=== PATIENT | male | born 1995 | race Caucasian/White ===

== ENCOUNTER 2021-04-23 14:04 | Emergency (ER) | payer BC ==
--- NOTE | 2021-04-23 16:58 | EDM.PDOC ---
ED HPI GENERAL MEDICAL PROBLEM - General Chief Complaint: General Stated Complaint: MEDICAL CLEARENCE Time Seen by Provider: 04/23/21 16:40 Source of Information: Reports: Patient History Limitations: Reports: No Limitations - History of Present Illness INITIAL COMMENTS - FREE TEXT/NARRATIVE: Patient is a 25-year-old male brought in by police after, with a plan to kill his father. Patient is maintaining more harm at home 16 seconds has decreased currently and try to stab her she may do ice after finished. Patient denies any current suicide ideation and not hearing voices and did not take any drug or alcohol denies any medical complaints. - Related Data Allergies Allergy/AdvReac Type Severity Reaction Status Date / Time berries Allergy Hives Uncoded 04/23/21 15:09 Home Meds: Home Meds . [No Known Home Meds] 04/23/21 [History] Social & Family History - Tobacco Use Second Hand Smoke Exposure: No - Caffeine Use Caffeine Use: Reports: None - Recreational Drug Use Recreational Drug Use: Yes Drug Use in Last 12 Months: Yes Recreational Drug Type: Reports: Marijuana/Hashish, Methamphetamine ED ROS GENERAL - Review of Systems Review Of Systems: See Below Constitutional: Reports: No Symptoms HEENT: Reports: No Symptoms Respiratory: Reports: No Symptoms Cardiovascular: Reports: No Symptoms Endocrine: Reports: No Symptoms GI/Abdominal: Reports: No Symptoms : Reports: No Symptoms Musculoskeletal: Reports: No Symptoms Skin: Reports: No Symptoms Neurological: Reports: No Symptoms Psychiatric: Reports: Homicidal Ideation Hematologic/Lymphatic: Reports: No Symptoms Immunologic: Reports: No Symptoms ED EXAM, GENERAL - Physical Exam Exam: See Below General Appearance: Alert, WD/WN, No Apparent Distress Eye Exam: Bilateral Eye: EOMI, PERRL Ears: Normal External Exam, Normal TMs Head: Atraumatic, Normocephalic Neck: Normal Inspection, Supple, Non-Tender Respiratory/Chest: No Respiratory Distress, Lungs Clear, Normal Breath Sounds Cardiovascular: Normal Peripheral Pulses, Regular Rate, Rhythm GI/Abdominal: Normal Bowel Sounds, Soft, Non-Tender Back Exam: Normal Inspection Extremities: Normal Inspection Neurological: Alert, Oriented, Normal Cognition, Normal Gait Course - Vital Signs Last Recorded V/S: Last Vital Signs Temp 97.5 F 04/23/21 14:41 Pulse 90 04/23/21 14:41 Resp 20 04/23/21 14:41 BP 120/63 04/23/21 14:41 Pulse Ox 97 04/23/21 14:41 - Orders/Labs/Meds Orders: Active Orders 24 hr Category Date Time Status OLANZapine [ZyPREXA] Med 04/23/21 18:14 Once 5 mg IM ONETIME ONE Labs: Laboratory Tests 04/23/21 04/23/21 04/23/21 Range/Units 16:59 17:02 17:02 WBC 8.33 (4.0-11.0) K/uL RBC 4.69 (4.50-5.90) M/uL Hgb 14.1 (13.0-17.0) g/dL Hct 40.9 (38.0-50.0) % MCV 87.2 (80.0-98.0) fL MCH 30.1 (27.0-32.0) pg MCHC 34.5 (31.0-37.0) g/dL RDW Std Deviation 41.6 (28.0-62.0) fl RDW Coeff of Damien 13 (11.0-15.0) % Plt Count 268 (150-400) K/uL MPV 9.80 (7.40-12.00) fL Neut % (Auto) 62.6 (48.0-80.0) % Lymph % (Auto) 29.7 (16.0-40.0) % Harvey % (Auto) 5.3 (0.0-15.0) % Eos % (Auto) 2.0 (0.0-7.0) % Baso % (Auto) 0.4 (0.0-1.5) % Neut # (Auto) 5.2 (1.4-5.7) K/uL Lymph # (Auto) 2.5 H (0.6-2.4) K/uL Harvey # (Auto) 0.4 (0.0-0.8) K/uL Eos # (Auto) 0.2 (0.0-0.7) K/uL Baso # (Auto) 0.0 (0.0-0.1) K/uL Nucleated RBC % 0.0 /100WBC Nucleated RBCs # 0 K/uL Sodium 143 (136-148) mmol/L Potassium 3.8 (3.5-5.1) mmol/L Chloride 106 (98-107) mmol/L Carbon Dioxide 28.8 (21.0-32.0) mmol/L BUN 12 (7.0-18.0) mg/dL Creatinine 1.0 (0.8-1.3) mg/dL Est Cr Clr Drug Dosing 113.90 mL/min Estimated GFR (MDRD) > 60.0 ml/min Glucose 89 (74-106) mg/dL Calcium 8.8 (8.5-10.1) mg/dL Total Bilirubin 0.4 (0.2-1.0) mg/dL AST 13 L (15-37) IU/L ALT 20 (14-63) IU/L Alkaline Phosphatase 79 (46-116) U/L Total Protein 7.2 (6.4-8.2) g/dL Albumin 4.0 (3.4-5.0) g/dL Globulin 3.2 (2.6-4.0) g/dL Albumin/Globulin Ratio 1.3 (0.9-1.6) Salicylates 4.5 (0-20) mg/dL Urine Opiates Screen (NEGATIVE) Ur Oxycodone Screen (NEGATIVE) Urine Methadone Screen (NEGATIVE) Acetaminophen <2.0 ug/mL Ur Barbiturates Screen (NEGATIVE) Ur Phencyclidine Scrn (NEGATIVE) Ur Amphetamine Screen (NEGATIVE) U Methamphetamines Scrn (NEGATIVE) U Benzodiazepines Scrn (NEGATIVE) U Cocaine Metab Screen (NEGATIVE) U Marijuana (THC) Screen (NEGATIVE) Ethyl Alcohol < 3.0 mg/dL SARS-CoV-2 RNA (AGGIE) NEGATIVE (NEGATIVE) 04/23/21 Range/Units 17:20 WBC (4.0-11.0) K/uL RBC (4.50-5.90) M/uL Hgb (13.0-17.0) g/dL Hct (38.0-50.0) % MCV (80.0-98.0) fL MCH (27.0-32.0) pg MCHC (31.0-37.0) g/dL RDW Std Deviation (28.0-62.0) fl RDW Coeff of Damien (11.0-15.0) % Plt Count (150-400) K/uL MPV (7.40-12.00) fL Neut % (Auto) (48.0-80.0) % Lymph % (Auto) (16.0-40.0) % Harvey % (Auto) (0.0-15.0) % Eos % (Auto) (0.0-7.0) % Baso % (Auto) (0.0-1.5) % Neut # (Auto) (1.4-5.7) K/uL Lymph # (Auto) (0.6-2.4) K/uL Harvey # (Auto) (0.0-0.8) K/uL Eos # (Auto) (0.0-0.7) K/uL Baso # (Auto) (0.0-0.1) K/uL Nucleated RBC % /100WBC Nucleated RBCs # K/uL Sodium (136-148) mmol/L Potassium (3.5-5.1) mmol/L Chloride (98-107) mmol/L Carbon Dioxide (21.0-32.0) mmol/L BUN (7.0-18.0) mg/dL Creatinine (0.8-1.3) mg/dL Est Cr Clr Drug Dosing mL/min Estimated GFR (MDRD) ml/min Glucose (74-106) mg/dL Calcium (8.5-10.1) mg/dL Total Bilirubin (0.2-1.0) mg/dL AST (15-37) IU/L ALT (14-63) IU/L Alkaline Phosphatase (46-116) U/L Total Protein (6.4-8.2) g/dL Albumin (3.4-5.0) g/dL Globulin (2.6-4.0) g/dL Albumin/Globulin Ratio (0.9-1.6) Salicylates (0-20) mg/dL Urine Opiates Screen NEGATIVE (NEGATIVE) Ur Oxycodone Screen NEGATIVE (NEGATIVE) Urine Methadone Screen NEGATIVE (NEGATIVE) Acetaminophen ug/mL Ur Barbiturates Screen NEGATIVE (NEGATIVE) Ur Phencyclidine Scrn NEGATIVE (NEGATIVE) Ur Amphetamine Screen NEGATIVE (NEGATIVE) U Methamphetamines Scrn POSITIVE (NEGATIVE) U Benzodiazepines Scrn NEGATIVE (NEGATIVE) U Cocaine Metab Screen NEGATIVE (NEGATIVE) U Marijuana (THC) Screen NEGATIVE (NEGATIVE) Ethyl Alcohol mg/dL SARS-CoV-2 RNA (AGGIE) (NEGATIVE) - Re-Assessments/Exams Free Text/Narrative Re-Assessment/Exam: 04/23/21 17:03 [facility]'s been accepted to [facility] pending normal range. 04/23/21 18:14 Patient has been assessed by Dr. Mitchell mauricio patient be transferred over. Departure - Departure Time of Disposition: 17:03 Disposition: DC/Tfer to Psych Hosp/Unit [facility] Condition: Good Clinical Impression: Homicidal ideation - Discharge Information Referrals: PCP,None [Primary Care Provider] - Forms: ED Department Discharge Sepsis Event Note (ED) - Evaluation Sepsis Screening Result: No Definite Risk - Focused Exam Vital Signs: Vital Signs Temp Pulse Resp BP Pulse Ox 04/23/21 14:41 97.5 F 90 20 120/63 97 - My Orders Last 24 Hours: My Active Orders 04/23/21 18:14 OLANZapine [ZyPREXA] 5 mg IM ONETIME ONE - Assessment/Plan Last 24 Hours: My Active Orders 04/23/21 18:14 OLANZapine [ZyPREXA] 5 mg IM ONETIME ONE Plan: Patient is 25-year-old male brought in in police custody for thoughts wanting to harm his father. Patient denies any medical complaints patient is medically clear likely central psychiatrically.
[2021-04-23 17:36] LABS: ACETAMINOPHEN <2.0 ug/mL; BLOOD UREA NITROGEN,BUN 12 mg/dL (7.0-18.0); CARBON DIOXIDE,CO2 28.8 mmol/L (21.0-32.0); CHLORIDE,CL 106 mmol/L (98-107); GLUCOSE RANDOM 89 mg/dL (74-106); POTASSIUM,K 3.8 mmol/L (3.5-5.1); SODIUM,NA 143 mmol/L (136-148)
[2021-04-23] MEDS ORDERED: OLANZapine 10 MG Vial IM ONE (18:14)
== END 2021-04-23 18:28 ==
LOC: MW.ED 14:04
DX: R45.850 Homicidal ideations (principal); Z20.822 Contact with and (suspected) exposure to COVID-19; Z91.018 Allergy to other foods
CPT/HCPCS: 36415; 80053; 80143; 80179; 80305; 80307; 83735; 84439; 84443; 84481; 85025; 87635; 96372; 99285; J3490; U0002

== ENCOUNTER 2021-05-03 13:38 | Emergency (ER) | payer SELFPAY ==
[2021-05-03] MEDS ORDERED: diphenhydrAMINE 50 MG/ML SDV IVPUSH ONE (14:34)
--- NOTE | 2021-05-03 14:45 | EDM.PDOC ---
ED HPI GENERAL MEDICAL PROBLEM - General Chief Complaint: General Stated Complaint: BODY STIFFNESS, EXCESSIVE DROOLING Time Seen by Provider: 05/03/21 13:56 Source of Information: Reports: Patient History Limitations: Reports: No Limitations - History of Present Illness INITIAL COMMENTS - FREE TEXT/NARRATIVE: Patient is a 25-year-old male history of schizophrenia was placed on trazodone and Abilify after his inpatient psychiatric treatment. States has been on for the past few days but states that has been making his body stiff with shuffling gait. Patient as he stopped taking the medicine himself he still has the symptoms. He denies any other complaints. Back Pain Score (Numeric/FACES): 8 - Related Data Allergies Allergy/AdvReac Type Severity Reaction Status Date / Time Penicillins Allergy Other Verified 05/03/21 13:47 berries Allergy Hives Uncoded 05/03/21 13:47 Home Meds: Home Meds ARIPiprazole [Abilify] 15 mg PO DAILY 05/03/21 [History] diphenhydrAMINE [Benadryl] 25 mg PO Q8H 2 Days #6 cap 05/03/21 [Rx] traZODone 50 mg PO DAILY 05/03/21 [History] Past Medical History Psychiatric History: Reports: Anxiety, Depression, PTSD, Schizophrenia - Infectious Disease History Infectious Disease History: Reports: Chicken Pox Social & Family History - Tobacco Use Packs/Tins Daily: 2 - Caffeine Use Caffeine Use: Reports: None - Recreational Drug Use Recreational Drug Use: Yes Recreational Drug Type: Reports: Marijuana/Hashish, Methamphetamine ED ROS GENERAL - Review of Systems Review Of Systems: See Below Constitutional: Reports: No Symptoms HEENT: Reports: No Symptoms Respiratory: Reports: No Symptoms Cardiovascular: Reports: No Symptoms Endocrine: Reports: No Symptoms GI/Abdominal: Reports: No Symptoms : Reports: No Symptoms Musculoskeletal: Reports: Muscle Stiffness Skin: Reports: No Symptoms Neurological: Reports: No Symptoms Psychiatric: Reports: No Symptoms Hematologic/Lymphatic: Reports: No Symptoms Immunologic: Reports: No Symptoms ED EXAM, GENERAL - Physical Exam Exam: See Below Exam Limited By: No Limitations General Appearance: Alert, WD/WN, No Apparent Distress Eye Exam: Bilateral Eye: EOMI, PERRL Ears: Normal External Exam, Normal TMs Nose: Normal Inspection Throat/Mouth: Normal Inspection Head: Atraumatic, Normocephalic Respiratory/Chest: No Respiratory Distress, Lungs Clear, Normal Breath Sounds Cardiovascular: Normal Peripheral Pulses, Regular Rate, Rhythm GI/Abdominal: Normal Bowel Sounds, Soft, Non-Tender Extremities: Normal Inspection, Normal Range of Motion, Non-Tender Neurological: Alert, Oriented, Normal Cognition. No: Normal Gait (Slight shuffle) Psychiatric: Normal Affect Course - Vital Signs Last Recorded V/S: Last Vital Signs Temp 98.4 F 05/03/21 15:17 Pulse 86 05/03/21 15:17 Resp 18 05/03/21 15:17 BP 114/74 05/03/21 15:17 Pulse Ox 98 05/03/21 15:17 - Orders/Labs/Meds Labs: Laboratory Tests 05/03/21 05/03/21 05/03/21 Range/Units 14:31 14:50 14:50 WBC 10.98 (4.0-11.0) K/uL RBC 5.20 (4.50-5.90) M/uL Hgb 15.9 (13.0-17.0) g/dL Hct 45.7 (38.0-50.0) % MCV 87.9 (80.0-98.0) fL MCH 30.6 (27.0-32.0) pg MCHC 34.8 (31.0-37.0) g/dL RDW Std Deviation 42.3 (28.0-62.0) fl RDW Coeff of Damien 13 (11.0-15.0) % Plt Count 292 (150-400) K/uL MPV 9.60 (7.40-12.00) fL Neut % (Auto) 77.3 (48.0-80.0) % Lymph % (Auto) 16.8 (16.0-40.0) % Dolores % (Auto) 4.9 (0.0-15.0) % Eos % (Auto) 0.8 (0.0-7.0) % Baso % (Auto) 0.2 (0.0-1.5) % Neut # (Auto) 8.5 H (1.4-5.7) K/uL Lymph # (Auto) 1.8 (0.6-2.4) K/uL Dolores # (Auto) 0.5 (0.0-0.8) K/uL Eos # (Auto) 0.1 (0.0-0.7) K/uL Baso # (Auto) 0.0 (0.0-0.1) K/uL Nucleated RBC % 0.0 /100WBC Nucleated RBCs # 0 K/uL Sodium 142 (136-148) mmol/L Potassium 4.3 (3.5-5.1) mmol/L Chloride 103 (98-107) mmol/L Carbon Dioxide 29.6 (21.0-32.0) mmol/L BUN 15 (7.0-18.0) mg/dL Creatinine 1.0 (0.8-1.3) mg/dL Est Cr Clr Drug Dosing 107.04 mL/min Estimated GFR (MDRD) > 60.0 ml/min Glucose 97 (74-106) mg/dL Calcium 9.2 (8.5-10.1) mg/dL Total Bilirubin 0.6 (0.2-1.0) mg/dL AST 19 (15-37) IU/L ALT 25 (14-63) IU/L Alkaline Phosphatase 93 (46-116) U/L Total Protein 8.1 (6.4-8.2) g/dL Albumin 4.5 (3.4-5.0) g/dL Globulin 3.6 (2.6-4.0) g/dL Albumin/Globulin Ratio 1.2 (0.9-1.6) Urine Opiates Screen NEGATIVE (NEGATIVE) Ur Oxycodone Screen NEGATIVE (NEGATIVE) Urine Methadone Screen NEGATIVE (NEGATIVE) Ur Barbiturates Screen NEGATIVE (NEGATIVE) Ur Phencyclidine Scrn NEGATIVE (NEGATIVE) Ur Amphetamine Screen NEGATIVE (NEGATIVE) U Methamphetamines Scrn NEGATIVE (NEGATIVE) U Benzodiazepines Scrn NEGATIVE (NEGATIVE) U Cocaine Metab Screen NEGATIVE (NEGATIVE) U Marijuana (THC) Screen POSITIVE (NEGATIVE) Ethyl Alcohol <3 mg/dL Meds: Medications Discontinued Medications Generic Name Dose Route Start Last Admin Trade Name Freq PRN Reason Stop Dose Admin Diphenhydramine HCl 50 mg 05/03/21 14:34 05/03/21 14:58 Diphenhydramine 50 Mg/Ml Sdv IVPUSH 05/03/21 14:35 50 mg ONETIME ONE Administration Departure - Departure Time of Disposition: 16:06 Disposition: Home, Self-Care 01 Condition: Good Clinical Impression: Akathisia - Discharge Information *PRESCRIPTION DRUG MONITORING PROGRAM REVIEWED*: Not Applicable *COPY OF PRESCRIPTION DRUG MONITORING REPORT IN PATIENT GENNARO: Not Applicable Prescriptions: diphenhydrAMINE [Benadryl] 25 mg PO Q8H 2 Days #6 cap Instructions: Dystonia Forms: ED Department Discharge Additional Instructions: You were seen today for possible reaction to the medication you are placed on your trazodone Abilify. Use topical medication recommend you do not restarted and you immediately follow-up with your psychiatrist for possible changes in your doses or changes your medication. We gave you Benadryl happened to your system we recommend you continue taking Benadryl for the next 2 days. If you have any other concerning signs or symptoms please return to ED. The following information is given to patients seen in the emergency department who are being discharged to home. This information is to outline your options for follow-up care. We provide all patients seen in our emergency department with a follow-up referral. The need for follow-up, as well as the timing and circumstances, are variable depending upon the specifics of your emergency department visit. If you don't have a primary care physician on staff, we will provide you with a referral. We always advise you to contact your personal physician following an emergency department visit to inform them of the circumstance of the visit and for follow-up with them and/or the need for any referrals to a consulting specialist. The emergency department will also refer you to a specialist when appropriate. This referral assures that you have the opportunity for follow-up care with a specialist. All of these measure are taken in an effort to provide you with optimal care, which includes your follow-up. Under all circumstances we always encourage you to contact your private physician who remains a resource for coordinating your care. When calling for follow-up care, please make the office aware that this follow-up is from your recent emergency room visit. If for any reason you are refused follow-up, please contact the [facility] Emergency Depart ment at and asked to speak to the emergency department charge nurse. Please follow up with your primary care physician. If you do not have a primary care physician, see below: [facility] [address] [place] [phone] [facility] [address] [place] [address] Sepsis Event Note (ED) - Evaluation Sepsis Screening Result: No Definite Risk - Focused Exam Vital Signs: Vital Signs Temp Pulse Resp BP Pulse Ox 05/03/21 15:17 98.4 F 86 18 114/74 98 05/03/21 13:49 97.1 F 92 16 110/74 98 - Assessment/Plan Plan: Patient is a 25-year-old male presents today for stiffening of his muscles. States that he was placed on trazodone and Abilify. This could be causing some dystonic reaction. We gave the patient Benadryl and he feels a lot better. We instructed patient to stop the medicine and follow-up with his psychiatrist tomorrow. Patient also instructed to continue Benadryl for the next 2 days as well.
[2021-05-03 15:34] LABS: BLOOD UREA NITROGEN,BUN 15 mg/dL (7.0-18.0); CARBON DIOXIDE,CO2 29.6 mmol/L (21.0-32.0); CHLORIDE,CL 103 mmol/L (98-107); GLUCOSE RANDOM 97 mg/dL (74-106); POTASSIUM,K 4.3 mmol/L (3.5-5.1); SODIUM,NA 142 mmol/L (136-148)
== END 2021-05-03 16:21 | disposition home or self-care (01) ==
LOC: MW.ED 13:38
DX: G25.71 Drug induced akathisia (principal); T50.905A Adverse effect of unspecified drugs, medicaments and biological substances, initial encounter; Z72.0 Tobacco use; Z91.018 Allergy to other foods; Z88.0 Allergy status to penicillin
CPT/HCPCS: 36415; 80053; 80305; 80307; 85025; 96374; 99283; J1200

== ENCOUNTER 2022-03-12 14:46 | Emergency (ER) | payer SELFPAY ==
[2022-03-12] MEDS ORDERED: Ondansetron 4 MG Tab.DIS PO ONE (15:17)
[2022-03-12] MEDS ORDERED: Ketorolac 60 MG/2 ML SDV IM ONE (15:17)
[2022-03-12 15:57] LABS: CORONAVIRUS COVID-19 NAA POSITIVE (NEGATIVE); INFLUENZA A NAA NEGATIVE (NEGATIVE); INFLUENZA B NAA NEGATIVE (NEGATIVE)
== END 2022-03-12 16:52 | disposition home or self-care (01) ==
LOC: MW.ED 14:46
DX: U07.1 COVID-19 (principal); Z72.0 Tobacco use; Z88.0 Allergy status to penicillin; Z91.018 Allergy to other foods
CPT/HCPCS: 0240U; 96372; 99283; A9270; J1885

== ENCOUNTER 2022-10-22 20:02 | Emergency (ER) | payer SELFPAY ==
[2022-10-22] MEDS ORDERED: Sodium Chloride 0.9% 1,000 ML IV ONE (20:52)
[2022-10-22] MEDS ORDERED: Ondansetron 4 MG/2 ML SDV IVPUSH ONE (20:52)
[2022-10-22] MEDS ORDERED: Ondansetron 4 MG Tab.DIS PO ONE (21:04)
[2022-10-22 21:05] LABS: BASOPHILS PERCENT AUTO 0.2 % (0.0-1.5); EOSINOPHILS ABSOLUTE AUTO 0.3 K/uL (0.0-0.7); EOSINOPHILS PERCENT AUTO 3.1 % (0.0-7.0); HEMATOCRIT 42.5 % (38.0-50.0); HEMOGLOBIN 14.7 g/dL (13.0-17.0); LYMPHOCYTES ABSOLUTE AUTO 2.5 K/uL (0.6-2.4); LYMPHOCYTES PERCENT AUTO 28.6 % (16.0-40.0); MEAN CORPUSCULAR HEMOGLOBIN 30.8 pg (27.0-32.0); MEAN CORPUSCULAR HGB CONC 34.6 g/dL (31.0-37.0); MEAN CORPUSCULAR VOLUME 88.9 fL (80.0-98.0); MONOCYTES ABSOLUTE AUTO 0.6 K/uL (0.0-0.8); MONOCYTES PERCENT AUTO 6.4 % (0.0-15.0); NEUTROPHILS ABSOLUTE AUTO 5.4 K/uL (1.4-5.7); NEUTROPHILS PERCENT AUTO 61.7 % (48.0-80.0); PLATELET COUNT,PLT 279 K/uL (150-400); RED BLOOD CELL COUNT 4.78 M/uL (4.50-5.90); WHITE BLOOD CELL COUNT,WBC 8.71 K/uL (4.0-11.0)
[2022-10-22 21:28] LABS: A/G RATIO 1.3 (0.9-1.6); ALBUMIN 4.1 g/dL (3.4-5.0); BILIRUBIN TOTAL 0.3 mg/dL (0.2-1.0); CALCIUM 9.3 mg/dL (8.5-10.1); CARBON DIOXIDE,CO2 28.1 mmol/L (21.0-32.0); CREATININE 1.1 mg/dL (0.8-1.3); EST CRCL DRUG DOSING (CG) 109.74 mL/min; POTASSIUM,K 3.9 mmol/L (3.5-5.1); PROTEIN TOTAL,TP 7.2 g/dL (6.4-8.2)
== END 2022-10-22 21:38 | disposition home or self-care (01) ==
LOC: MW.ED 20:02
DX: K52.9 Noninfective gastroenteritis and colitis, unspecified (principal); Z88.0 Allergy status to penicillin; Z91.018 Allergy to other foods; Z86.16 Personal history of COVID-19
CPT/HCPCS: 36415; 80053; 83690; 85025; 99284; A9270; 99283

== ENCOUNTER 2022-10-24 17:44 | Emergency (ER) | payer SELFPAY ==
[2022-10-24] MEDS ORDERED: Ondansetron 4 MG/2 ML SDV IVPUSH ONE (18:05)
[2022-10-24] MEDS ORDERED: Sodium Chloride 0.9% 1,000 ML IV ONE (18:05)
[2022-10-24 18:58] LABS: BASOPHILS PERCENT AUTO 0.3 % (0.0-1.5); EOSINOPHILS ABSOLUTE AUTO 0.2 K/uL (0.0-0.7); EOSINOPHILS PERCENT AUTO 2.9 % (0.0-7.0); HEMATOCRIT 44.8 % (38.0-50.0); HEMOGLOBIN 15.5 g/dL (13.0-17.0); LYMPHOCYTES ABSOLUTE AUTO 2.2 K/uL (0.6-2.4); LYMPHOCYTES PERCENT AUTO 28.6 % (16.0-40.0); MEAN CORPUSCULAR HEMOGLOBIN 30.8 pg (27.0-32.0); MEAN CORPUSCULAR HGB CONC 34.6 g/dL (31.0-37.0); MEAN CORPUSCULAR VOLUME 89.1 fL (80.0-98.0); MONOCYTES ABSOLUTE AUTO 0.5 K/uL (0.0-0.8); MONOCYTES PERCENT AUTO 6.1 % (0.0-15.0); NEUTROPHILS ABSOLUTE AUTO 4.7 K/uL (1.4-5.7); NEUTROPHILS PERCENT AUTO 62.1 % (48.0-80.0); NRBC ABSOLUTE 0 K/uL; PLATELET COUNT,PLT 272 K/uL (150-400); RED BLOOD CELL COUNT 5.03 M/uL (4.50-5.90); WHITE BLOOD CELL COUNT,WBC 7.59 K/uL (4.0-11.0)
[2022-10-24 19:26] LABS: A/G RATIO 1.4 (0.9-1.6); ALBUMIN 4.3 g/dL (3.4-5.0); BILIRUBIN TOTAL 0.6 mg/dL (0.2-1.0); CALCIUM 8.9 mg/dL (8.5-10.1); CARBON DIOXIDE,CO2 26.6 mmol/L (21.0-32.0); CREATININE 1.1 mg/dL (0.8-1.3); EST CRCL DRUG DOSING (CG) 118.67 mL/min; POTASSIUM,K 4.1 mmol/L (3.5-5.1); PROTEIN TOTAL,TP 7.4 g/dL (6.4-8.2)
[2022-10-24 19:50] LABS: APPEARANCE,URINE CLEAR; BILIRUBIN,URINE NEGATIVE (NEGATIVE); COLOR,URINE YELLOW; GLUCOSE,URINE NEGATIVE (NEGATIVE); KETONES,URINE NEGATIVE (NEGATIVE); LEUKOCYTE ESTERASE,URINE NEGATIVE (NEGATIVE); NITRITE,URINE NEGATIVE (NEGATIVE); OCCULT BLOOD,URINE NEGATIVE (NEGATIVE); PH,URINE 7.5 (5.0-8.0); PROTEIN,URINE NEGATIVE (NEGATIVE); UROBILINOGEN,URINE 0.2 EU/dL (<2.0)
[2022-10-24] MEDS ORDERED: Iopamidol 755 MG/ML 500 ML Multipack Bottle IVPUSH STA (19:58)
== END 2022-10-24 20:39 | disposition home or self-care (01) ==
LOC: MW.ED 17:44
DX: R10.13 Epigastric pain (principal); Z88.0 Allergy status to penicillin; Z91.018 Allergy to other foods; Z86.16 Personal history of COVID-19
CPT/HCPCS: 36415; 74177; 80053; 81003; 83690; 85025; 96361; 96374; 99284; J2405; J7030; Q9967

== ENCOUNTER 2022-11-23 23:40 | Emergency (ER) | payer SELFPAY | END 2022-11-24 04:12 | disposition home or self-care (01) | LOC: MW.ED 23:40 | DX: R10.9 Unspecified abdominal pain (principal); R11.10 Vomiting, unspecified; Z88.0 Allergy status to penicillin; Z91.018 Allergy to other foods; Z86.16 Personal history of COVID-19 | CPT/HCPCS: 99283 ==

== ENCOUNTER 2022-11-28 19:41 | Emergency (ER) | payer SELFPAY ==
[2022-11-28] MEDS ORDERED: Sodium Chloride 0.9% 1,000 ML IV ONE (21:19)
[2022-11-28] MEDS ORDERED: Morphine 4 MG/ML Syringe IVPUSH ONE (21:19)
[2022-11-28] MEDS ORDERED: Famotidine 20 MG/2 ML SDV IVPUSH ONE (21:19)
[2022-11-28] MEDS ORDERED: Ondansetron 4 MG/2 ML SDV IVPUSH ONE (21:19)
[2022-11-28 21:49] LABS: BASOPHILS PERCENT AUTO 0.3 % (0.0-1.5); EOSINOPHILS ABSOLUTE AUTO 0.4 K/uL (0.0-0.7); EOSINOPHILS PERCENT AUTO 3.9 % (0.0-7.0); HEMATOCRIT 46.3 % (38.0-50.0); LYMPHOCYTES ABSOLUTE AUTO 2.5 K/uL (0.6-2.4); LYMPHOCYTES PERCENT AUTO 27.9 % (16.0-40.0); MEAN CORPUSCULAR HEMOGLOBIN 30.8 pg (27.0-32.0); MEAN CORPUSCULAR HGB CONC 34.6 g/dL (31.0-37.0); MEAN CORPUSCULAR VOLUME 89.2 fL (80.0-98.0); MONOCYTES ABSOLUTE AUTO 0.7 K/uL (0.0-0.8); MONOCYTES PERCENT AUTO 7.3 % (0.0-15.0); NEUTROPHILS ABSOLUTE AUTO 5.4 K/uL (1.4-5.7); NEUTROPHILS PERCENT AUTO 60.6 % (48.0-80.0); PLATELET COUNT,PLT 280 K/uL (150-400); RED BLOOD CELL COUNT 5.19 M/uL (4.50-5.90); WHITE BLOOD CELL COUNT,WBC 8.94 K/uL (4.0-11.0)
[2022-11-28 22:18] LABS: A/G RATIO 1.4 (0.9-1.6); ALBUMIN 4.3 g/dL (3.4-5.0); BILIRUBIN TOTAL 0.5 mg/dL (0.2-1.0); CALCIUM 8.9 mg/dL (8.5-10.1); CARBON DIOXIDE,CO2 28.4 mmol/L (21.0-32.0); CREATININE 1.1 mg/dL (0.8-1.3); EST CRCL DRUG DOSING (CG) 115.46 mL/min; PROTEIN TOTAL,TP 7.4 g/dL (6.4-8.2)
== END 2022-11-28 22:26 | disposition home or self-care (01) ==
LOC: MW.ED 19:41
DX: R10.13 Epigastric pain (principal); R11.2 Nausea with vomiting, unspecified; Z86.16 Personal history of COVID-19; Z88.0 Allergy status to penicillin; Z91.018 Allergy to other foods
CPT/HCPCS: 36415; 80053; 83690; 85025; 96361; 96374; 96375; 99284; J2270; J2405; J3490; J7030

== ENCOUNTER 2022-12-11 07:55 | Day surgery (SDC) | payer SELFPAY ==
[~2022-12-11 07:55] MED LIST: Lactated Ringers 1,000 ML IV SCH; Propofol 200 MG/20 ML SDV ONE
[2022-12-11] MEDS ORDERED: Propofol 200 MG/20 ML SDV ONE (09:47)
[2022-12-11] MEDS ORDERED: Dexmedetomidine 200 MCG/2 ML SDV ONE (11:20)
== END 2022-12-11 10:35 | disposition home or self-care (01) ==
LOC: MW.SDS 07:55
PROVIDERS: ATTEND Surgery
DX: K21.9 Gastro-esophageal reflux disease without esophagitis (principal); K31.89 Other diseases of stomach and duodenum; K31.A11 Gastric intestinal metaplasia without dysplasia, involving the antrum; K29.70 Gastritis, unspecified, without bleeding; F17.210 Nicotine dependence, cigarettes, uncomplicated; Z88.0 Allergy status to penicillin; Z88.8 Allergy status to other drugs, medicaments and biological substances; Z79.899 Other long term (current) drug therapy
CPT/HCPCS: 43239; J2704; J7120; J3490

== ENCOUNTER 2023-04-09 08:30 | Emergency (ER) | payer SELFPAY | END 2023-04-09 09:17 | disposition home or self-care (01) | LOC: MW.ED 08:30 | DX: H60.12 Cellulitis of left external ear (principal); F17.210 Nicotine dependence, cigarettes, uncomplicated; Z86.16 Personal history of COVID-19; Z88.0 Allergy status to penicillin; Z91.018 Allergy to other foods | CPT/HCPCS: 99283 ==

== ENCOUNTER 2023-04-13 10:00 | Emergency (ER) | payer SELFPAY ==
[2023-04-13] MEDS ORDERED: Sulfamethoxazole/Trimethoprim 800-160 MG Tab PO ONE (10:25)
[2023-04-13] MEDS ORDERED: Lidocaine 1% PF 2 ML SDV INJECT ONE (10:29)
== END 2023-04-13 11:02 | disposition home or self-care (01) ==
LOC: MW.ED 10:00
DX: H66.42 Suppurative otitis media, unspecified, left ear (principal); Z88.0 Allergy status to penicillin; Z91.018 Allergy to other foods; Z86.16 Personal history of COVID-19
CPT/HCPCS: 10060; 99282; A9270; 99283; J3490

== ENCOUNTER 2023-10-06 23:31 | Emergency (ER) | payer BC ==
[2023-10-07] MEDS: Morphine 2 MG/ML SYRINGE IVPUSH ONE (00:03)
[2023-10-07] MEDS: Ondansetron 4 MG/2 ML SDV IVPUSH ONE (00:03)
[2023-10-07] MEDS: Famotidine 20 MG/2 ML SDV IVPUSH ONE (00:03)
[2023-10-07 00:16] LABS: BASOPHILS ABSOLUTE AUTO 0.05 K/uL (0.00-0.20); BASOPHILS PERCENT AUTO 0.5 % (0.0-1.0); EOSINOPHILS ABSOLUTE AUTO 0.17 K/uL (0.00-0.45); EOSINOPHILS PERCENT AUTO 1.7 % (0.0-6.0); HEMATOCRIT 40.4 % (42.0-52.0); HEMOGLOBIN 14.3 g/dL (14.0-18.0); IMMATURE GRAN ABSOLUTE AUTO 0.03 K/uL (0.00-0.05); IMMATURE GRAN PERCENT AUTO 0.3 % (0.0-0.4); LYMPHOCYTES ABSOLUTE AUTO 3.46 K/uL (1.00-4.80); LYMPHOCYTES PERCENT AUTO 35.3 % (24.0-44.0); MEAN CORPUSCULAR HEMOGLOBIN 31.1 pg (28.0-32.0); MEAN CORPUSCULAR HGB CONC 35.4 g/dL (32.0-36.0); MEAN CORPUSCULAR VOLUME 87.8 fL (83.0-99.0); MEAN PLATELET VOLUME 9.4 fL (9.4-12.4); MONOCYTES ABSOLUTE AUTO 0.71 K/uL (0.00-0.80); MONOCYTES PERCENT AUTO 7.2 % (0.0-8.0); NEUTROPHILS ABSOLUTE AUTO 5.39 K/uL (1.80-7.70); PLATELET COUNT,PLT 283 K/uL (150-400); WHITE BLOOD CELL COUNT,WBC 9.81 K/uL (3.9-11.3)
[2023-10-07 00:44] LABS: A/G RATIO 1.3 (0.9-1.6); ALANINE AMINOTRANSFERASE,ALT 23 IU/L (14-63); ALBUMIN 4.3 g/dL (3.4-5.0); ALKALINE PHOSPHATASE 73 U/L (46-116); ASPARTATE AMNIOTRANSFERASE,AST 24 IU/L (15-37); BILIRUBIN TOTAL 0.5 mg/dL (0.2-1.0); BLOOD UREA NITROGEN,BUN 10 mg/dL (7.0-18.0); CARBON DIOXIDE,CO2 24.4 mmol/L (21.0-32.0); CHLORIDE,CL 104 mmol/L (98-107); ESTIMATED GFR 104 mL/min (>60); GLUCOSE RANDOM 92 mg/dL (74-106); LIPASE 17 U/L (16-77); POTASSIUM,K 3.2 mmol/L (3.5-5.1); PROTEIN TOTAL,TP 7.6 g/dL (6.4-8.2); SODIUM,NA 142 mmol/L (136-148)
[2023-10-07] MEDS: diphenhydrAMINE 50 MG/ML SDV IVPUSH ONE (01:26)
[2023-10-07] MEDS: Metoclopramide 10 MG/2 ML SDV IVPUSH ONE (01:26)
[2023-10-07] MEDS: Sodium Chloride 0.9% 1,000 ML IV ONE (01:27)
[2023-10-07] MEDS: Sucralfate Suspension 1 GM/10 ML Cup PO ONE (01:27)
== END 2023-10-07 02:55 | disposition home or self-care (01) ==
LOC: MW.ED 23:31
DX: R07.9 Chest pain, unspecified (principal); R51.9 Headache, unspecified; K21.9 Gastro-esophageal reflux disease without esophagitis; Z88.0 Allergy status to penicillin; Z91.018 Allergy to other foods; Z79.899 Other long term (current) drug therapy; Z87.19 Personal history of other diseases of the digestive system
CPT/HCPCS: 36415; 70450; 71045; 80053; 83690; 84484; 85025; 85379; 93005; 96374; 96375; 99285; A9270; J1200; J2270; J2405; J2765; J3490; J7030; 93010; 99284

== ENCOUNTER 2024-01-30 22:46 | Emergency (ER) | payer OTHER, BC ==
[2024-01-30] MEDS ORDERED: Naloxone 0.4 MG/ML SDV IVPUSH PRN (22:54)
[2024-01-30] MEDS: HYDROmorphone 1 MG/ML Syringe IVPUSH ONE (22:56)
[2024-01-30] MEDS: fentaNYL 100 MCG/2 ML SDV IVPUSH ONE (23:11)
[2024-01-30 23:45] LABS: BASOPHILS ABSOLUTE AUTO 0.05 K/uL (0.00-0.20); BASOPHILS PERCENT AUTO 0.5 % (0.0-1.0); EOSINOPHILS ABSOLUTE AUTO 0.26 K/uL (0.00-0.45); EOSINOPHILS PERCENT AUTO 2.6 % (0.0-6.0); HEMATOCRIT 40.8 % (42.0-52.0); HEMOGLOBIN 13.6 g/dL (14.0-18.0); IMMATURE GRAN ABSOLUTE AUTO 0.03 K/uL (0.00-0.05); IMMATURE GRAN PERCENT AUTO 0.3 % (0.0-0.4); LYMPHOCYTES ABSOLUTE AUTO 3.18 K/uL (1.00-4.80); LYMPHOCYTES PERCENT AUTO 31.4 % (24.0-44.0); MEAN CORPUSCULAR HEMOGLOBIN 30.1 pg (28.0-32.0); MEAN CORPUSCULAR HGB CONC 33.3 g/dL (32.0-36.0); MEAN CORPUSCULAR VOLUME 90.3 fL (83.0-99.0); MEAN PLATELET VOLUME 9.7 fL (9.4-12.4); MONOCYTES ABSOLUTE AUTO 0.76 K/uL (0.00-0.80); MONOCYTES PERCENT AUTO 7.5 % (0.0-8.0); NEUTROPHILS ABSOLUTE AUTO 5.84 K/uL (1.80-7.70); NEUTROPHILS PERCENT AUTO 57.7 % (41.0-71.0); PLATELET COUNT,PLT 259 K/uL (150-400); RED BLOOD CELL COUNT 4.52 M/uL (4.52-5.90); WHITE BLOOD CELL COUNT,WBC 10.12 K/uL (3.9-11.3)
[2024-01-30 23:56] LABS: A/G RATIO 1.4 (0.9-1.6); ALBUMIN 3.8 g/dL (3.4-5.0); BILIRUBIN TOTAL 0.5 mg/dL (0.2-1.0); CALCIUM 8.5 mg/dL (8.5-10.1); CARBON DIOXIDE,CO2 29.3 mmol/L (21.0-32.0); CREATININE 1.3 mg/dL (0.8-1.3); EST CRCL DRUG DOSING (CG) 102.01 mL/min; PROTEIN TOTAL,TP 6.5 g/dL (6.4-8.2)
[2024-01-31] MEDS: oxyCODONE 5 MG Tab PO ONE (00:21)
== END 2024-01-31 00:59 | disposition home or self-care (01) ==
LOC: MW.ED 22:46
DX: S82.102A Unspecified fracture of upper end of left tibia, initial encounter for closed fracture (principal); S82.832A Other fracture of upper and lower end of left fibula, initial encounter for closed fracture; K21.9 Gastro-esophageal reflux disease without esophagitis; Z79.899 Other long term (current) drug therapy; Z88.0 Allergy status to penicillin; Z88.1 Allergy status to other antibiotic agents; Z91.018 Allergy to other foods; Z75.8 Other problems related to medical facilities and other health care; V86.56XA Driver of dirt bike or motor/cross bike injured in nontraffic accident, initial encounter; Y92.410 Unspecified street and highway as the place of occurrence of the external cause
CPT/HCPCS: 36415; 71045; 73590; 73700; 80053; 83690; 85025; 96374; 96375; 99285; A9270; J1170; J3010; 99283

== ENCOUNTER 2024-02-04 11:49 | Day surgery (SDC) | payer BC ==
[~2024-02-04 11:49] MED LIST changes: +Albuterol 0.083% 2.5 MG/3 ML Neb Soln NEB PRN; -Lactated Ringers 1,000 ML IV SCH; +Metoclopramide 10 MG/2 ML SDV IVPUSH PRN; +Morphine 2 MG/ML SYRINGE IVPUSH PRN; +Naloxone 0.4 MG/ML SDV IVPUSH PRN; +Ondansetron 4 MG/2 ML SDV IVPUSH PRN; +Phenylephrine HCl In 0.9% NaCl 1 MG/10 ML Syringe IVPUSH PRN; -Propofol 200 MG/20 ML SDV ONE; +ceFAZolin 2 GM in Sodium Chloride 0.9% 50 ML IV ONE
[2024-02-04] MEDS: Lactated Ringers 1,000 ML IV SCH (12:12)
[2024-02-04] MEDS: fentaNYL 50 MCG/ML SDV IVPUSH PRN (12:27)
[2024-02-04] MEDS ORDERED: Propofol 200 MG/20 ML SDV ONE (13:25)
[2024-02-04] MEDS ORDERED: Ketamine HCL/NACL, ISO-OSM 50 MG/5 ML Syringe ONE (13:26)
[2024-02-04] MEDS ORDERED: fentaNYL 100 MCG/2 ML SDV ONE ×2 (13:26→14:24)
[2024-02-04] MEDS ORDERED: Midazolam 1 MG/ML 2 ML SDV ONE (13:34)
[2024-02-04] MEDS ORDERED: Ondansetron 4 MG/2 ML SDV ONE (14:10)
[2024-02-04] MEDS ORDERED: Dexamethasone 4 MG/ML 5 ML MDV ONE (14:10)
[2024-02-04] MEDS ORDERED: HYDROmorphone 2 MG/ML Syringe ONE (14:13)
[2024-02-04] MEDS ORDERED: ceFAZolin 2 GM Vial ONE (14:14)
[2024-02-04] MEDS ORDERED: Bacitracin Oint 28.35 GM Tube ONE (14:20)
[2024-02-04] MEDS ORDERED: Ketorolac 30 MG/ML SDV ONE (14:40)
[2024-02-04] MEDS ORDERED: Water For Injection, Sterile 20 ML ONE (14:57)
[2024-02-04] MEDS ORDERED: dexmedeTOMIDine HCl 200 MCG/2 ML SDV ONE (14:57)
[2024-02-04] MEDS: HYDROmorphone 1 MG/ML Syringe IVPUSH PRN (15:46)
== END 2024-02-04 16:35 | disposition home or self-care (01) ==
LOC: MW.SDS 11:49
PROVIDERS: ATTEND Orthopaedic Surgery
DX: S82.142A Displaced bicondylar fracture of left tibia, initial encounter for closed fracture (principal); S82.112A Displaced fracture of left tibial spine, initial encounter for closed fracture; K21.9 Gastro-esophageal reflux disease without esophagitis; F17.210 Nicotine dependence, cigarettes, uncomplicated; Z88.1 Allergy status to other antibiotic agents; Z88.5 Allergy status to narcotic agent; Z88.0 Allergy status to penicillin; Z79.899 Other long term (current) drug therapy; V86.56XA Driver of dirt bike or motor/cross bike injured in nontraffic accident, initial encounter
CPT/HCPCS: 20690; 27532; 76000; A9270; C1713; J0131; J0690; J1100; J1170; J1885; J2250; J2405; J2704; J3010; J7120; 01392; J3490

== ENCOUNTER 2024-02-23 10:28 | Day surgery (SDC) | payer BC ==
[~2024-02-23 10:28] MED LIST changes: -ceFAZolin 2 GM in Sodium Chloride 0.9% 50 ML IV ONE; +fentaNYL 50 MCG/ML SDV IVPUSH PRN
[2024-02-23] MEDS: Lactated Ringers 1,000 ML IV SCH (11:00)
[2024-02-23] MEDS ORDERED: Ketorolac 30 MG/ML SDV ONE (11:35)
[2024-02-23] MEDS ORDERED: fentaNYL 250 MCG/5 ML SDV ONE ×3 (11:36→13:49)
[2024-02-23] MEDS ORDERED: Propofol 200 MG/20 ML SDV ONE ×2 (11:36→15:35)
[2024-02-23] MEDS ORDERED: Ketamine HCL/NACL, ISO-OSM 50 MG/5 ML Syringe ONE ×2 (11:36→14:43)
[2024-02-23] MEDS ORDERED: Ondansetron 4 MG/2 ML SDV ONE (11:38)
[2024-02-23] MEDS ORDERED: Dexamethasone 4 MG/ML 5 ML MDV ONE (11:38)
[2024-02-23] MEDS ORDERED: Famotidine 20 MG/2 ML SDV ONE (11:40)
[2024-02-23] MEDS ORDERED: Lidocaine 2% 11 ML Jelly Filled Syringe ONE (12:47)
[2024-02-23] MEDS ORDERED: ceFAZolin 2 GM Vial ONE (12:56)
[2024-02-23] MEDS ORDERED: Glycopyrrolate 0.2 MG/ML SDV ONE (13:19)
[2024-02-23] MEDS ORDERED: HYDROmorphone 2 MG/ML Syringe ONE (15:00)
[2024-02-23] MEDS ORDERED: propofoL 0 ML ONE (15:24)
[2024-02-23] MEDS ORDERED: Ropivacaine 0.5% 5 MG/ML 30 ML SDV ONE (15:32)
[2024-02-23] MEDS ORDERED: Succinylcholine/Sod PF 100 MG/5 ML SYRINGE IV ONE (16:01)
[2024-02-23] MEDS: HYDROmorphone 1 MG/ML Syringe IVPUSH PRN (16:18)
== END 2024-02-23 18:20 | disposition home or self-care (01) ==
LOC: MW.SDS 10:28
PROVIDERS: ATTEND Orthopaedic Surgery
DX: S82.142A Displaced bicondylar fracture of left tibia, initial encounter for closed fracture (principal); K21.9 Gastro-esophageal reflux disease without esophagitis; F17.210 Nicotine dependence, cigarettes, uncomplicated; X58.XXXA Exposure to other specified factors, initial encounter
CPT/HCPCS: 20694; 27536; A9270; J0131; J0330; J0690; J1100; J1170; J1885; J2405; J2704; J2795; J3010; J3490; J7120; 01392